=== PATIENT | female | born 1975 | race American Indian/Alaskan Native ===

== ENCOUNTER 2017-09-04 12:20 | Observation (INO) | payer OTHER ==
[2017-09-04 12:33] VITALS: BMI 27.9
--- NOTE | 2017-09-04 13:17 | ED PDOC ---
Arrival/HPI <Huy Sanchez Alexandra - Last Filed: 09/04/17 14:33> - History of Present Illness Time/Duration: > month Symptom Onset: Gradual Symptom Course: Worsening Quality: Stabbing Severity Level: 6 Activities at Onset: Rest <Gil Egan - Last Filed: 09/04/17 19:17> - General Chief Complaint: Abdominal Pain Time Seen by Provider: 09/04/17 12:29 - History of Present Illness Narrative History of Present Illness (Text): This patient is a 42 year old female with a PMHx of Migraines, Asthma, and Hemorrhoids who presents complaining of epigastric pain x 6 months and blood in the stool x 1 week. Patient describes the pain as a sharp, squeezing pain that is constant, non-radiating, which she currently rates a 6.5 out of 10. At it's worse the pain is a 10/10. Pain is relieved by sidebending to the left and laying in a lateral decubitus position. The pain is worsened when she takes a deep breath. The pain is not better or worse with food. The patient's last bowel movement was 2 days ago which she had elaina blood per stool. Patient has tried baking soda, Tums, ibuprofen, and Excedrin to relieve the pain without success. She usually takes the ibuprofen and Excedrin for her migraines but has been taking them for her abdominal pain as well. Her pain associated with bloating, loss of appetite, and subjective distension. She had one episode of non-bilious non-bloody vomiting yesterday. She also had a 102 fever on Saturday which resolved with Ibuprofen. Patient also complains of generalized weakness. She denies any chills, SOB, chest pain, nausea, diarrhea, recent changes in diet, or any urinary symptoms. Patient has seen two physicians for the abdominal pain and they both prescribed her dulcolax which she has been taking for 1.5 weeks. ROS POSITIVES: Epigastric pain, Non-bloody, non-bilious vomiting, fever (on Saturday), loss of appetite, bloating, hematochezia, generalized weakness. NEGATIVES: Chills, SOB, chest pain, nausea, diarrhea, recent changes in diet , urinary symptoms, back pain, PMHx: Migraines, Asthma, Hemorrhoids PSHx: in 1990 Allergies: IV Contrast (Hives), seafood, milk Social Hx: 2.5 PPD for 30 years. Quit 1 year ago. Drinks Socially on holiday. Denies illicit drug use FamHx: Breast CA (Mother), Heart Disease (Father), Fibroids (Sister, Mother) Meds: Albuterol Nebulizer PRN (Gil Egan) Past Medical History - Provider Review Nursing Documentation Reviewed: Yes - Infectious Disease Hx of Infectious Diseases: None - Pulmonary Hx Asthma: Yes - Psychiatric Hx Substance Use: No <Gil Egan - Last Filed: 09/04/17 19:17> Family/Social History - Physician Review Nursing Documentation Reviewed: Yes Family/Social History: Neoplasm/Cancer (Breast (Mother)) Smoking Status: Former Smoker Hx Alcohol Use: Yes Frequency of alcohol use: Socially Hx Substance Use: No <Gil Egan - Last Filed: 09/04/17 19:17> Allergies/Home Meds <Huy Sanchez - Last Filed: 09/04/17 14:33> <Gil Egan - Last Filed: 09/04/17 19:17> Allergies/Adverse Reactions: Allergies No Known Allergies Allergy (Verified 09/04/17 12:31) Home Medications: Home Meds Medication Instructions Recorded Confirmed Albuterol 0.042% [Albuterol 0.042% 1.25 mg NEB TID PRN 09/04/17 09/04/17 Inhal Kera (1.25mg/3ml) UD] Review of Systems - Physician Review All systems were reviewed & negative as marked: Yes (Except As per HPI) - Review of Systems Respiratory: Normal. absent: SOB Cardiovascular: Normal. absent: Chest Pain <Gil Egan - Last Filed: 09/04/17 19:17> Physical Exam Vital Signs Reviewed: Yes Temperature: Afebrile Blood Pressure: Normal Pulse: Regular Respiratory Rate: Normal Appearance: Positive for: Well-Appearing, Non-Toxic, Uncomfortable Pain Distress: Moderate Mental Status: Positive for: Alert and Oriented X 3 - Systems Exam Head: Present: Atraumatic, Normocephalic Extroacular Muscles: Present: EOMI Conjunctiva: Present: Normal Ears: Present: Normal Mouth: Present: Moist Mucous Membranes Nose (External): Present: Atraumatic Neck: No: Lymphadenopathy Respiratory/Chest: Present: Clear to Auscultation. No: Wheezes, Rales, Rhonchi Cardiovascular: Present: Regular Rate and Rhythm, Normal S1, S2. No: Murmurs Abdomen: Present: Tenderness (Epigastric > LLQ), Normal Bowel Sounds. No: Rebound, Guarding, Mass/Organomegaly Rectal: Present: Occult Blood, Gross Blood, Hemorrhoids. No: Rectal Tenderness , Fissures, Nodule/Mass/Lesions Back: No: CVA Tenderness, Paraspinal Tenderness Upper Extremity: Present: Capillary Refill < 2s Lower Extremity: No: Edema Neurological: Present: GCS=15, Speech Normal Skin: Present: Warm, Dry, Normal Color Psychiatric: Present: Alert, Oriented x 3, Normal Affect, Normal Mood <Gil Egan - Last Filed: 09/04/17 19:17> Vital Signs Temp Pulse Resp BP Pulse Ox 09/04/17 17:49 68 18 106/68 99 09/04/17 13:56 78 18 119/72 98 09/04/17 12:32 98.2 F 81 18 106/76 97 09/04/17 12:21 98.2 F 81 18 106/76 99 Medical Decision Making <Huy Sanchez - Last Filed: 09/04/17 14:33> - Lab Interpretations I have reviewed the lab results: Yes - RAD Interpretation Canvas Repairer: Radiologist - EKG Interpretation Interpreted by ED Physician: Yes Type: 12 lead EKG <Gil Egan - Last Filed: 09/04/17 19:17> ED Course and Treatment: A 42 year old female with abdominal pain and hematochezia. In agreement with resident note, which includes further HPI details. Patient was seen and evaluated with resident, came up with plan and treatment together. (Huy Sanchez) 42 year old female with PMHx of Migraines, Asthma, Hemorrhoids who presents complaining of epigastric pain and bloody stool. --Stool Occult Blood POSITIVE and BRBPR --CBC/CMP --UA --Lipase --PT/PTT --Type and Screen --1 L IV fluid Bolus --IV protonix Reassessment: --CBC: -Hgb 9.3 -RDW elevated at 17.2 --CMP: WNL --Lipase: WNL @ 92. --UA: Protein 30 Large Blood Negative Leuk Es, Nitrates, WBC's --CT Abd/Pelvis: Pending --Viscous Lidocaine --Maalox 30 Reassessment II: --CT Abd/Pelvis: IMPRESSION by Dr. Lashanda Rowland: -No acute abdominal or pelvic abnormality. Enlarged lobular uterus which may be related to fibroids. A dedicated pelvic ultrasound on a non-emergent basis is recommended for further evaluation. -Small pericardial effusion Dispo: Will admit to hospitalist service (Gil Egan) - Lab Interpretations Lab Results: 09/04/17 13:45 09/04/17 13:45 Lab Results 09/04/17 15:03: Blood Type Confirm A POSITIVE 09/04/17 13:45: Sodium 140, Potassium 4.2, Chloride 108 H, Carbon Dioxide 26, Anion Gap 11, BUN 12, Creatinine 0.9, Est GFR ( Amer) > 60, Est GFR (Non- Af Amer) > 60, Random Glucose 84, Calcium 8.8, Total Bilirubin 0.4, AST 22, ALT 21, Alkaline Phosphatase 58, Total Protein 7.4, Albumin 3.9, Globulin 3.4, Albumin/Globulin Ratio 1.1, Lipase 92 09/04/17 13:45: PT 12.1, INR 1.12 H, APTT 25.4 09/04/17 13:45: WBC 7.1, RBC 3.78, Hgb 9.3 L, Hct 29.5 L, MCV 78.0 L, MCH 24.6 L , MCHC 31.5, RDW 17.2 H, Plt Count 384, MPV 8.8, Gran % 61.4, Lymph % (Auto) 29.0, [place] % (Auto) 6.8 H, Eos % (Auto) 2.5, Baso % (Auto) 0.3, Gran # 4.33, Lymph # 2.1, [place] # 0.5, Eos # 0.2, Baso # 0.02 09/04/17 13:45: Blood Type A POSITIVE, Antibody Screen Negative, BBK History Checked No verified bt 09/04/17 13:10: Urine Color Yellow, Urine Appearance Turbid, Urine pH 6.0, Ur Specific [place] 1.025, Urine Protein 30 H, Urine Glucose (UA) Negative, Urine Ketones Negative, Urine Blood Large H, Urine Nitrate Negative, Urine Bilirubin Negative, Urine Urobilinogen 0.2, Ur Leukocyte Esterase Negative, Urine RBC Tntc , Urine WBC Negative, Ur Epithelial Cells 6 - 8, Urine HCG, Qual Negative - RAD Interpretation Radiology Orders: 09/04/17 13:22 ABD & PELVIS PO CONTRAST ONLY [CT] Stat - Medication Orders Current Medication Orders: Discontinued Medications Al Hydrox/Mg Hydrox/Simethicone (Maalox Plus 30 Ml) 30 ml PO STAT STA Stop: 09/04/17 14:10 Last Admin: 09/04/17 14:30 Dose: 30 ml Sodium Chloride (Sodium Chloride 0.9%) 1,000 mls @ 999 mls/hr IV .Q1H1M STA Stop: 09/04/17 14:19 Last Admin: 09/04/17 13:50 Dose: 999 mls/hr eMAR Start Stop Document 09/04/17 13:50 SRE (Rec: 09/04/17 13:51 [email or web address] [id number]) Intravenous Solution Start Date 09/04/17 Start Time 13:51 End Date 09/04/17 End time 14:50 Total Infusion Time 59 Lidocaine HCl (Lidocaine 2% Viscous) 15 ml PO STAT STA Stop: 09/04/17 14:18 Last Admin: 09/04/17 14:31 Dose: 15 ml Pantoprazole Sodium (Protonix Inj) 40 mg IVP STAT STA Stop: 09/04/17 13:20 Last Admin: 09/04/17 13:50 Dose: 40 mg IVP Administration Document 09/04/17 13:50 SRE (Rec: 09/04/17 13:50 [id number]) Charges for Administration # of IVP Administrations 1 - PA / [employer]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 / has examined the patient and agrees with the treatment plan. <Huy Sanchez P - Last Filed: 09/04/17 14:33> Disposition/Present on Arrival <Huy Sanchez P - Last Filed: 09/04/17 14:33> - Present on Arrival Any Indicators Present on Arrival: No History of DVT/PE: No History of Uncontrolled Diabetes: No Urinary Catheter: No History of Decub. Ulcer: No History Surgical Site Infection Following: None - Disposition Have Diagnosis and Disposition been Completed?: Yes Disposition Time: 19:13 Patient Plan: Admission <Gil Egan - Last Filed: 09/04/17 19:17> - Disposition Diagnosis: Abdominal pain Disposition: HOSPITALIZED Condition: STABLE Forms: [employer] (Latvian)
[2017-09-04] MEDS ORDERED: Sodium Chloride 0.9% 1,000 ML IV STA (13:19)
[2017-09-04 13:32] LABS: URINE BILIRUBIN NEGATIVE (NEGATIVE); URINE BLOOD LARGE (NEGATIVE); URINE GLUCOSE (UA) NEGATIVE (NEGATIVE); URINE KETONE NEGATIVE (NEGATIVE); URINE LEUKOCYTE ESTERASE NEGATIVE Leu/uL (NEGATIVE); URINE PROTEIN 30 mg/dL (<30 mg/dL); URINE UROBILINOGEN 0.2 E.U./dL (<1 E.U./dL)
[2017-09-04 13:37] LABS: URINE APPEARANCE TURBID (CLEAR); URINE COLOR YELLOW (YELLOW)
[2017-09-04] MEDS ORDERED: Iohexol 240 (50 ml) ONE (13:42)
[2017-09-04 13:45] LABS: URINE RBC TNTC /hpf (0-2); URINE WBC NEGATIVE /hpf (0-6)
[2017-09-04 13:58] LABS: BASO # 0.02 K/mm3 (0.0-2.0); BASO % 0.3 % (0.0-3.0); EOS # 0.2 (0.0-0.7); EOS % 2.5 % (1.5-5.0); GRAN # 4.33 (1.4-6.5); GRAN % 61.4 % (50.0-68.0); HEMATOCRIT 29.5 % (36.0-48.0); LYMPH # 2.1 (1.2-3.4); MEAN CORPUSCULAR HEMOGLOBIN 24.6 pg (25.0-35.0); MEAN CORPUSCULAR HGB CONC 31.5 g/dl (31.0-37.0); MEAN PLATELET VOLUME 8.8 fl (7.0-11.0); MONO # 0.5 (0.1-0.6); MONO % 6.8 % (1.0-6.0); RED CELL DISTRIBUTION WIDTH 17.2 % (11.5-14.5); WHITE BLOOD COUNT 7.1 10^3/ul (4.5-11.0)
[2017-09-04 14:09] LABS: ALB/GLOB RATIO 1.1 (1.1-1.8); ALKALINE PHOSPHATASE 58 U/L (38-126); ALT/SGPT 21 U/L (7-56); AST/SGOT 22 U/L (14-36); BILIRUBIN,TOTAL 0.4 mg/dL (0.2-1.3); BLOOD UREA NITROGEN 12 mg/dL (7-21); CALCIUM 8.8 mg/dL (8.4-10.5); CARBON DIOXIDE 26 mmol/L (21-33); CHLORIDE 108 mmol/L (98-107); GFR AFRICAN-AMERICAN > 60; GLUCOSE,RANDOM 84 mg/dL (70-110); LIPASE 92 U/L (23-300); TOTAL PROTEIN 7.4 g/dL (5.8-8.3)
[2017-09-04] MEDS ORDERED: Alum-Mag Hydrox-Simethicone Susp (30 mL) PO STA (14:09)
[2017-09-04] MEDS ORDERED: Lidocaine 2% Viscous 100 ml PO STA (14:09)
[2017-09-04 14:10] LABS: INR 1.12 (0.93-1.08); PARTIAL THROMBOPLASTIN TIME 25.4 Seconds (25.1-36.5)
[2017-09-04 14:15] LABS: POTASSIUM 4.2 mmol/L (3.6-5.0); SODIUM 140 mmol/L (132-148)
--- NOTE | 2017-09-04 18:45 | CT ---
PROCEDURE: CT Abdomen and Pelvis with contrast HISTORY: Abdominal Pain COMPARISON: None. TECHNIQUE: CT scan of the abdomen and pelvis was performed without administration of intravenous contrast. Oral contrast was administered. Coronal and sagittal reformatted images were obtained. This CT exam was performed using one or more of the following dose reduction techniques: Automated exposure control, adjustment of the mA and/or kV according to patient size, and/or use of iterative reconstruction technique. FINDINGS: LOWER THORAX: The lung bases are clear. There is a small pericardial effusion LIVER: Normal in size. No gross lesion or ductal dilatation. GALLBLADDER AND BILE DUCTS: There are no calcified gallstones. PANCREAS: Normal in size. No gross lesion or ductal dilatation. SPLEEN: Normal in size. ADRENALS: Mild adrenal gland thickening without discrete nodules. KIDNEYS AND URETERS: Both kidneys are normal in size without hydronephrosis or nephrolithiasis. VASCULATURE: No aortic aneurysm. BOWEL: The small bowel loops are normal in caliber. There is moderate amount of stool in the colon. No bowel dilatation or obstruction. APPENDIX: Normal appendix. PERITONEUM: No free fluid. No free air. LYMPH NODES: No enlarged lymph nodes. BLADDER: Grossly normal in appearance. REPRODUCTIVE: The uterus is lobular and enlarged. BONES: No acute fracture. OTHER FINDINGS: None. IMPRESSION: No acute abdominal or pelvic abnormality. Enlarged lobular uterus which may be related to fibroids. A dedicated pelvic ultrasound on a nonemergent basis is recommended for further evaluation. Small pericardial effusion.
--- NOTE | 2017-09-04 20:39 | CP.PCM.HP ---
Addendum entered and electronically signed by Mynor Mantilla DO 21:11: Anemia - Follow CBC - No baseline for pt PPX - Protonix - SCD's Original Note: <Mynor Mantilla - Last Filed: 09/04/17 20:46> History of Present Illness - History of Present Illness History of Present Illness: H/P for Dr. López - AARON PEÑA, PGY-1 pager [phone] CC: Hematochezia HPI: 42 F with PMHx Migraines, Asthma, and Hemorrhoids presents with one week of hematochezia. Pt states that she started taking a laxative about 1 month ago, because her stomach was getting distended. She then started having 3-4 bm's a day, then started having blood per rectum about a week ago. Pt states that she has some abdominal pain. Pain is relieved by sidebending to the left and laying in a lateral decubitus position. The pain is worsened when she takes a deep breath. Denies any other symptoms. Pt denies f/ch/cp/sob/n/v/d/dysuria/frequency/urgency/hematuria/hematemesis PSHx: C-Sxn 1990 PMHx: Migraines, Asthma, and Hemorrhoids All: Contrast dye SocHx: Drinks wine, quit smoking last year, had a 32 pack year history FamHx: HTN Meds: Albuterol ROS: Const'l: pt denies fever, chills, generalized weakness ENT: pt denies dysphagia, otalgia, hearing deficit, rhinorrhea Eyes: pt denies sudden loss of vision, diplopia, blurred vision MSK: pt denies muscle stiffness, joint pain, extremity cramping Cardio: pt denies sob, heart murmur, cp Pulm: pt denies cough, hemoptysis, wheeze GI: See hpi : pt denies burning on urination, urinary frequency, hematuria, urinary urgency Neuro: pt denies paresis, paresthesia, dizziness, richards, numbness, tingling Derm: pt denies skin changes, lesions, nail changes Endo: pt denies intolerance to heat/cold, diaphoresis, night sweats, polydipsia Psych: pt denies anxiety, depression, mood changes Present on Admission - Present on Admission Any Indicators Present on Admission: No Past Patient History - Infectious Disease Hx of Infectious Diseases: None - Past Social History Smoking Status: Former Smoker - PULMONARY Hx Asthma: Yes - PSYCHIATRIC Hx Substance Use: No Meds Allergies/Adverse Reactions: Allergies Allergy/AdvReac Type Severity Reaction Status Date / Time No Known Allergies Allergy Verified 09/04/17 12:31 Physical Exam - Additional Findings Additional findings: Phys Exam: VS as below Const'l: a&o x 4, nad Head/Neck: neck supple, no jvd, trachea midline, carotid midline, no cervical /head mass Eyes: genevieve, nonicteric sclera, eom intact ENT: auditory acuity grossly intact, throat not congested, no nasal deformity Cardio: rrr, no m/r/g, no carotid bruit, nml s1, s2 Pulm: no accessory muscle use, equal nml breath sounds bilaterally, ctab Abd: +TTP in upper abdomen; s/nd, nbs x 4 q, no palpable masses Derm: no rashes, no ulcers, no lesions Extr: no edema, no cyanosis, no calf tenderness, no lesions, no varicosities Neuro: cn II-XII grossly intact, ue and le 5/5 muscle strength bilaterally, no los ue, le bilaterally and core Results - Vital Signs Recent Vital Signs: Last Vital Signs Temp 98.2 F 09/04/17 12:32 Pulse 68 09/04/17 17:49 Resp 18 09/04/17 17:49 BP 106/68 09/04/17 17:49 Pulse Ox 99 09/04/17 17:49 - Labs Result Diagrams: 09/04/17 13:45 09/04/17 13:45 Assessment & Plan - Assessment and Plan (Free Text) Assessment: A/P 42 F with PMHx of Asthma and migraines presents with 1 week hx of hematochezia. Hematochezia - Hgb is 9.3, baseline unknown - FOBT positive Asthma - Duonebs prn and sourav Migraines - No home meds - Consider neuro c/s if acute migraines occur <Mikayla López - Last Filed: 09/04/17 23:40> Results - Vital Signs Recent Vital Signs: Last Vital Signs Temp 98.2 F 09/04/17 12:32 Pulse 70 09/04/17 20:46 Resp 18 09/04/17 20:46 BP 103/58 L 09/04/17 20:46 Pulse Ox 98 09/04/17 20:46 - Labs Result Diagrams: 09/04/17 13:45 09/04/17 13:45 Attending/Attestation - Attestation I have personally seen and examined this patient.: Yes I have fully participated in the care of the patient.: Yes I have reviewed all pertinent clinical information: Yes Notes (Text): 09/04/17 23:27 Pt gives history of taking "a lot of Exedrin" for her migraines. She has had c/o abdominal pain for about 6 months. Admits to feeling anxious because of her abdominal pain,takes Xanax which is given to her by her sister. Allergic to Contrast Dye,Seafood and Lactose. O/E of eyes conjunctiva is pale. Abdomen :tenderness is noted in the upper abdomen,however there is no rebound or guarding.Normal BS heard on auscultation. Diagnosis: Hematochezia
[2017-09-04] MEDS ORDERED: Albuterol-Ipratrop 3 mg / 0.5 (3 ml) UD IH PRN (20:48)
[2017-09-05] MEDS: Albuterol-Ipratrop 3 mg / 0.5 (3 ml) UD IH SCH ×2 (02:59→08:11)
[2017-09-05] MEDS ORDERED: Pantoprazole 40 mg EC Tab PO SCH (06:00)
[2017-09-05 06:30] LABS: BASO # 0.03 K/mm3 (0.0-2.0); BASO % 0.5 % (0.0-3.0); EOS # 0.2 (0.0-0.7); EOS % 4.1 % (1.5-5.0); GRAN # 3.11 (1.4-6.5); GRAN % 53.4 % (50.0-68.0); HEMATOCRIT 29.9 % (36.0-48.0); LYMPH % 34.6 % (22.0-35.0); MEAN CELL VOLUME 77.9 fl (80.0-105.0); MEAN CORPUSCULAR HEMOGLOBIN 24.2 pg (25.0-35.0); MEAN CORPUSCULAR HGB CONC 31.1 g/dl (31.0-37.0); MEAN PLATELET VOLUME 8.5 fl (7.0-11.0); MONO # 0.4 (0.1-0.6); MONO % 7.4 % (1.0-6.0); WHITE BLOOD COUNT 5.8 10^3/ul (4.5-11.0)
[2017-09-05 07:09] LABS: IRON 28 ug/dL (45-180)
[2017-09-05 07:17] LABS: ALKALINE PHOSPHATASE 57 U/L (38-126); ALT/SGPT 23 U/L (7-56); AST/SGOT 24 U/L (14-36); BILIRUBIN,TOTAL 0.5 mg/dL (0.2-1.3); BLOOD UREA NITROGEN 9 mg/dL (7-21); CALCIUM 8.8 mg/dL (8.4-10.5); CARBON DIOXIDE 25 mmol/L (21-33); CHLORIDE 108 mmol/L (98-107); GFR AFRICAN-AMERICAN > 60; GLUCOSE,RANDOM 86 mg/dL (70-110); SODIUM 139 mmol/L (132-148); TOTAL PROTEIN 6.9 g/dL (5.8-8.3)
[2017-09-05 08:03] VITALS: BP 120/78; PULSE 76; RESP 20; TEMP 98.4; O2SAT 100
--- NOTE | 2017-09-05 09:53 | CARD ---
APPROVED REPORT EKG Measurement Heart [id number] <Conclusion> Normal sinus rhythm Normal ECG
[2017-09-05] MEDS ORDERED: POLYETHYLENE GLYCOL 3350 17 GM/Dose PACKET PO SCH (10:00)
[2017-09-05 13:08] LABS: FOLATE 7.2 ng/mL
--- NOTE | 2017-09-06 06:03 | CP.PCM.DIS ---
Provider - Provider Date of Admission: 09/04/17 19:19 Attending physician: Sarah Davis MD Consults: GI: Annette (pt left before he could see her) Time Spent in preparation of Discharge (in minutes): 30 Hospital Course - Lab Results Lab Results: Most Recent Lab Values WBC 5.8 10^3/ul (4.5-11.0) 09/05/17 05:40 RBC 3.84 10^6/uL (3.5-6.1) 09/05/17 05:40 Hgb 9.3 g/dL (12.0-16.0) L 09/05/17 05:40 Hct 29.9 % (36.0-48.0) L 09/05/17 05:40 MCV 77.9 fl (80.0-105.0) L 09/05/17 05:40 MCH 24.2 pg (25.0-35.0) L 09/05/17 05:40 MCHC 31.1 g/dl (31.0-37.0) 09/05/17 05:40 RDW 17.0 % (11.5-14.5) H 09/05/17 05:40 Plt Count 345 10^3/uL (120.0-450.0) 09/05/17 05:40 MPV 8.5 fl (7.0-11.0) 09/05/17 05:40 Gran % 53.4 % (50.0-68.0) 09/05/17 05:40 Lymph % (Auto) 34.6 % (22.0-35.0) 09/05/17 05:40 [place] % (Auto) 7.4 % (1.0-6.0) H 09/05/17 05:40 Eos % (Auto) 4.1 % (1.5-5.0) 09/05/17 05:40 Baso % (Auto) 0.5 % (0.0-3.0) 09/05/17 05:40 Gran # 3.11 (1.4-6.5) 09/05/17 05:40 Lymph # 2.0 (1.2-3.4) 09/05/17 05:40 [place] # 0.4 (0.1-0.6) 09/05/17 05:40 Eos # 0.2 (0.0-0.7) 09/05/17 05:40 Baso # 0.03 K/mm3 (0.0-2.0) 09/05/17 05:40 PT 12.1 SECONDS (9.4-12.5) 09/04/17 13:45 INR 1.12 (0.93-1.08) H 09/04/17 13:45 APTT 25.4 Seconds (25.1-36.5) 09/04/17 13:45 Sodium 139 mmol/L (132-148) 09/05/17 05:40 Potassium 4.0 mmol/L (3.6-5.0) 09/05/17 05:40 Chloride 108 mmol/L (98-107) H 09/05/17 05:40 Carbon Dioxide 25 mmol/L (21-33) 09/05/17 05:40 Anion Gap 11 (10-20) 09/05/17 05:40 BUN 9 mg/dL (7-21) 09/05/17 05:40 Creatinine 0.8 mg/dl (0.7-1.2) 09/05/17 05:40 Est GFR ( Amer) > 60 09/05/17 05:40 Est GFR (Non-Af Amer) > 60 09/05/17 05:40 Random Glucose 86 mg/dL (70-110) 09/05/17 05:40 Calcium 8.8 mg/dL (8.4-10.5) 09/05/17 05:40 Iron 28 ug/dL (45-180) L 09/05/17 05:40 TIBC 390 ug/dL (265-497) 09/05/17 05:40 % Saturation 7 % (20-55) L 09/05/17 05:40 Ferritin 5.0 ng/mL 09/05/17 05:40 Total Bilirubin 0.5 mg/dL (0.2-1.3) 09/05/17 05:40 AST 24 U/L (14-36) 09/05/17 05:40 ALT 23 U/L (7-56) 09/05/17 05:40 Alkaline Phosphatase 57 U/L (38-126) 09/05/17 05:40 Total Protein 6.9 g/dL (5.8-8.3) 09/05/17 05:40 Albumin 3.5 g/dL (3.0-4.8) 09/05/17 05:40 Globulin 3.4 gm/dL 09/05/17 05:40 Albumin/Globulin Ratio 1.0 (1.1-1.8) L 09/05/17 05:40 Lipase 92 U/L (23-300) 09/04/17 13:45 Vitamin B12 356 pg/mL (239-931) 09/05/17 05:40 Folate 7.2 ng/mL 09/05/17 05:40 Urine Color Yellow (YELLOW) 09/04/17 13:10 Urine Appearance Turbid (CLEAR) 09/04/17 13:10 Urine pH 6.0 (4.7-8.0) 09/04/17 13:10 Ur Specific [place] 1.025 (1.005-1.035) 09/04/17 13:10 Urine Protein 30 mg/dL (<30 mg/dL) H 09/04/17 13:10 Urine Glucose (UA) Negative mg/dL (NEGATIVE) 09/04/17 13:10 Urine Ketones Negative mg/dL (NEGATIVE) 09/04/17 13:10 Urine Blood Large (NEGATIVE) H 09/04/17 13:10 Urine Nitrate Negative (NEGATIVE) 09/04/17 13:10 Urine Bilirubin Negative (NEGATIVE) 09/04/17 13:10 Urine Urobilinogen 0.2 E.U./dL (<1 E.U./dL) 09/04/17 13:10 Ur Leukocyte Esterase Negative [place]/uL (NEGATIVE) 09/04/17 13:10 Urine RBC Tntc /hpf (0-2) 09/04/17 13:10 Urine WBC Negative /hpf (0-6) 09/04/17 13:10 Ur Epithelial Cells 6 - 8 /hpf (0-5) 09/04/17 13:10 Urine HCG, Qual Negative (NEGATIVE) 09/04/17 13:10 Blood Type A POSITIVE 09/04/17 13:45 Blood Type Confirm A POSITIVE 09/04/17 15:03 Antibody Screen Negative 09/04/17 13:45 BBK History Checked No verified bt 09/04/17 13:45 - Hospital Course Hospital Course: HPI Day of Admit: 42 F with PMHx Migraines, Asthma, and Hemorrhoids presents with one week of hematochezia. Pt states that she started taking a laxative about 1 month ago, because her stomach was getting distended. She then started having 3-4 bm's a day, then started having blood per rectum about a week ago. Pt states that she has some abdominal pain. Pain is relieved by sidebending to the left and laying in a lateral decubitus position. The pain is worsened when she takes a deep breath. Denies any other symptoms. Pt denies f/ch/cp/sob/n/v/d/dysuria/frequency/urgency/hematuria/hematemesis Hospital Course: While at the hospital, a FOBT was performed, and bright red blood was found, which allowed for admission to the hospital. However, Pt eloped before she could be seen the next day. However, her H/H were stable, the same value as the day before (9.3) A/P On Day of Elopement: 42 F with PMHx of Asthma and migraines presents with 1 week hx of hematochezia. Hematochezia - Hgb is 9.3, baseline unknown - FOBT positive Asthma - Duonebs prn and sourav Migraines - No home meds - Consider neuro c/s if acute migraines occur Anemia - Follow CBC - No baseline for pt PPX - Protonix - SCD's Discharge Exam - Additional Findings Additional findings: Phys Exam: VS as below Const'l: a&o x 4, nad Head/Neck: neck supple, no jvd, trachea midline, carotid midline, no cervical /head mass Eyes: genevieve, nonicteric sclera, eom intact ENT: auditory acuity grossly intact, throat not congested, no nasal deformity Cardio: rrr, no m/r/g, no carotid bruit, nml s1, s2 Pulm: no accessory muscle use, equal nml breath sounds bilaterally, ctab Abd: +TTP in upper abdomen; s/nd, nbs x 4 q, no palpable masses Derm: no rashes, no ulcers, no lesions Extr: no edema, no cyanosis, no calf tenderness, no lesions, no varicosities Neuro: cn II-XII grossly intact, ue and le 5/5 muscle strength bilaterally, no los ue, le bilaterally and core Discharge Plan - Follow Up Plan Condition: STABLE Disposition: AGAINST MEDICAL ADVICE
== END 2017-09-05 09:00 | disposition left against medical advice (07) ==
LOC: ED 12:20 → ERH 19:19 → 3RNO 21:35
PROVIDERS: ADMIT Hospitalist; ATTEND Hospitalist
DX: K92.1 Melena (principal); D64.9 Anemia, unspecified; G43.909 Migraine, unspecified, not intractable, without status migrainosus; I10 Essential (primary) hypertension; J45.909 Unspecified asthma, uncomplicated; Z80.3 Family history of malignant neoplasm of breast; Z82.49 Family history of ischemic heart disease and other diseases of the circulatory system; Z87.891 Personal history of nicotine dependence; Z91.041 Radiographic dye allergy status; Z91.011 Allergy to milk products; Z91.013 Allergy to seafood; R40.2412 Glasgow coma scale score 13-15, at arrival to emergency department; K64.9 Unspecified hemorrhoids
CPT/HCPCS: 36415; 74176; 80053; 81001; 82607; 82728; 82746; 83540; 83550; 83690; 84703; 85025; 85610; 85730; 86850; 86900; 93005; 96361; 96374; 99284; C9113; G0378; J7040; Q9966